=== PATIENT | female | born 1935 | race Caucasian/White ===

== ENCOUNTER 2021-10-01 18:47 | Emergency (ER) | payer MEDICARE ==
[~2021-10-01] VITALS: Ht 165.1 cm; Wt 66.7 kg
[~2021-10-01 18:47] MED LIST: ADLT ASA LOW81 MG OR; CO Q 1030 MG OR; FISH OIL300 MG OR; MULTI 50+ OR; VITAMIN B-12500 MC1 SL
[2021-10-01] MEDS ORDERED: LOSARTAN POTAS100 MG PO (20:04)
[2021-10-01] MEDS ORDERED: NORVASC5 M1 PO (20:06)
[2021-10-01 22:12] LABS: URINE BILIRUBIN - DIPSTICK NEGATIVE (NEGATIVE); URINE BLOOD DIPSTICK NEGATIVE (NEGATIVE); URINE COLOR YELLOW; URINE GLUCOSE - DIPSTICK NEGATIVE (NEGATIVE); URINE KETONE NEGATIVE (NEGATIVE); URINE PH 6.5 (4.5-8.0); URINE PROTEIN - DIPSTICK NEGATIVE (NEG-TRACE); URINE SPECIFIC GRAVITY <=1.005; URINE UROBILINOGEN - DIPSTICK 0.2 E.U./dL (0.2)
[2021-10-01 22:13] LABS: URINE LEUK ESTERASE LARGE (NEGATIVE); URINE NITRITE - DIPSTICK POSITIVE (Negative)
[2021-10-01 22:22] LABS: URINE BACTERIA MANY hpf; URINE RBC 0-2 RBC/hpf (0-5); URINE SQUAMOUS EPITHELIAL CELL MANY EPI/hpf (0-FEW); URINE WBC >100 WBC/hpf (0-5)
[2021-10-01] MEDS ORDERED: CYCLOBENZAPRINE10 MG PO (22:29)
[2021-10-01] MEDS ORDERED: NAPROXEN500 MG PO (22:29)
[2021-10-01] MEDS ORDERED: CEPHALEXIN500 MG PO (22:29)
[2021-10-01 22:50] VITALS: BP 171/64
== END 2021-10-01 22:50 | disposition home or self-care (01) ==
LOC: ED 18:47
PROVIDERS: Emergency Medicine
DX: M47.816 Spondylosis without myelopathy or radiculopathy, lumbar region (principal); N39.0 Urinary tract infection, site not specified; B96.20 Unspecified Escherichia coli [E. coli] as the cause of diseases classified elsewhere; I10 Essential (primary) hypertension